=== PATIENT | male | born 1995 | race Caucasian/White ===

== ENCOUNTER 2020-06-21 05:30 | Emergency (ER) | payer OTHER ==
[~2020-06-21] VITALS: Ht 193 cm; Wt 108.9 kg
[2020-06-21 05:43] VITALS: BP 109/82
[2020-06-21] MEDS ORDERED: TETRACAINE HCL 0.5% OPTH(EYE) SOLN 4ML EACHEYE ONE (07:00)
[2020-06-21] MEDS ORDERED: FLUORESCEIN SOD 1 MG TEST STRIP OP ONE (07:00)
== END 2020-06-21 08:06 | disposition home or self-care (01) ==
LOC: ER 05:30
DX: T15.02XA Foreign body in cornea, left eye, initial encounter (principal); X58.XXXA Exposure to other specified factors, initial encounter; Y93.89 Activity, other specified; Y92.89 Other specified places as the place of occurrence of the external cause; Y99.8 Other external cause status
CPT/HCPCS: 65222; 99284; J7030